=== PATIENT | male | born 1950 | race Caucasian/White ===

== ENCOUNTER → 2022-07-11 | Outpatient (REF) | payer MEDICARE, OTHER | LOC: M LAB REF 16:27 | PROVIDERS: ATTEND Internal Medicine | DX: M10.9 Gout, unspecified (principal) ==

== ENCOUNTER → 2022-09-17 | Outpatient (CLI) | payer MEDICARE, OTHER | LOC: M WUC 15:14 | PROVIDERS: ATTEND Internal Medicine | DX: I51.7 Cardiomegaly (principal); R05.9 Cough, unspecified; R06.00 Dyspnea, unspecified ==

== ENCOUNTER → 2023-04-16 | Outpatient (CLI) | payer MEDICARE, OTHER ==
[~2023-04-16] MED LIST: ALLO100T PO; ALOG25TA PO; ASPI325T48 PO; FLEC25TA PO; GLIM2TAB4 PO; JARD1TAB3 PO; LASI40TA9 PO; LISI40TA4 PO; MAGN400T2 PO; METO75TA PO; NEUR300C PO; OMEG10002 PO; PANT40TA29 PO; THERTAB52 PO; ZOLO100T PO
== END ==
LOC: M PLAIMG 11:07
PROVIDERS: ATTEND Psychiatry & Neurology Neurology
DX: M99.51 Intervertebral disc stenosis of neural canal of cervical region (principal); M43.02 Spondylolysis, cervical region; M50.20 Other cervical disc displacement, unspecified cervical region

== ENCOUNTER → 2023-06-01 | Outpatient (CLI) | payer MEDICARE, OTHER | LOC: M WUC 11:50 | PROVIDERS: ATTEND Internal Medicine | DX: M25.559 Pain in unspecified hip (principal); M19.011 Primary osteoarthritis, right shoulder; M19.012 Primary osteoarthritis, left shoulder ==

== ENCOUNTER → 2023-06-24 | Outpatient (REF) | payer MEDICARE, OTHER | LOC: M LAB REF 11:45 | PROVIDERS: ATTEND Internal Medicine | DX: M79.10 Myalgia, unspecified site (principal); M25.50 Pain in unspecified joint ==

== ENCOUNTER 2023-08-24 07:13 | Day surgery (SDC) | payer MEDICARE, OTHER ==
[~2023-08-24] VITALS: Ht 180.3 cm; Wt 111.0 kg
[~2023-08-24 07:13] MED LIST changes: +NS 1,000 ML IV ONE
[2023-08-24] MEDS ORDERED: propofoL 200 MG/20 ML VIAL As Ordered ONE (07:30)
[2023-08-24] MEDS ORDERED: LIDOCAINE 2% 100MG/5ML SDV (FOR ANES.) As Ordered ONE (07:30)
[2023-08-24 07:37] VITALS: TEMP 97.4
[2023-08-24 09:43] VITALS: BP 126/69; O2SAT 99
== END 2023-08-24 09:49 | disposition home or self-care (01) ==
LOC: M OPP 07:13
PROVIDERS: ATTEND Internal Medicine Gastroenterology
DX: K63.89 Other specified diseases of intestine (principal); K64.0 First degree hemorrhoids; K57.30 Diverticulosis of large intestine without perforation or abscess without bleeding; R19.4 Change in bowel habit; Z87.891 Personal history of nicotine dependence; E11.9 Type 2 diabetes mellitus without complications; G47.30 Sleep apnea, unspecified; Z99.89 Dependence on other enabling machines and devices; Z79.02 Long term (current) use of antithrombotics/antiplatelets; Z79.1 Long term (current) use of non-steroidal anti-inflammatories (NSAID); Z79.82 Long term (current) use of aspirin; Z79.84 Long term (current) use of oral hypoglycemic drugs; Z79.891 Long term (current) use of opiate analgesic; Z79.899 Other long term (current) drug therapy; Z88.8 Allergy status to other drugs, medicaments and biological substances

== ENCOUNTER → 2023-10-20 | Outpatient (CLI) | payer MEDICARE, OTHER ==
[~2023-10-20] MED LIST changes: -NS 1,000 ML IV ONE
== END ==
LOC: M WUC 14:58
PROVIDERS: ATTEND Nurse Practitioner Family
DX: R07.82 Intercostal pain (principal)

== ENCOUNTER → 2023-11-24 | Outpatient (REF) | payer MEDICARE, OTHER ==
[2023-11-24 13:23] LABS: RSV AMPLIFICATION NEGATIVE (NEGATIVE)
== END ==
LOC: M LAB REF 12:16
PROVIDERS: ATTEND Nurse Practitioner Family
DX: R06.02 Shortness of breath (principal); R06.2 Wheezing

== ENCOUNTER → 2023-11-24 | Outpatient (CLI) | payer MEDICARE, OTHER | LOC: M WUC 10:42 | PROVIDERS: ATTEND Nurse Practitioner Family | DX: R06.2 Wheezing (principal); R06.02 Shortness of breath ==

== ENCOUNTER → 2023-11-30 | Outpatient (REF) | payer MEDICARE, OTHER | LOC: M LAB REF 16:18 | PROVIDERS: ATTEND Internal Medicine | DX: M25.50 Pain in unspecified joint (principal) ==

== ENCOUNTER → 2024-07-15 | Outpatient (REF) | payer MEDICARE, OTHER | LOC: M LAB REF 16:36 | PROVIDERS: ATTEND Internal Medicine | DX: M10.9 Gout, unspecified (principal) ==

== ENCOUNTER → 2024-07-26 | Outpatient (CLI) | payer MEDICARE, OTHER | LOC: M PLAIMG 10:38 | PROVIDERS: ATTEND Physician Assistant Medical | DX: R41.3 Other amnesia (principal) ==

== ENCOUNTER 2024-08-28 16:58 | Inpatient (IN) | payer MEDICARE, OTHER ==
[~2024-08-28] VITALS: Ht 182.9 cm; Wt 114.1 kg
[2024-08-28] MEDS: methylPREDNISolone 125MG 2ML VIAL IV ONE (17:30)
[2024-08-28 17:50] LABS: VENOUS BASE EXCESS 1.5 (-2.0-2.0); VENOUS HCO3 25.1 MMOL/L (23.0-27.0); VENOUS O2 SATURATION 92.7 % (60.0-80.0); VENOUS PARTIAL PRESSURE CO2 36.9 mmHg (38.0-50.0); VENOUS PARTIAL PRESSURE O2 63.9 mmHg (30.0-50.0); VENOUS PH 7.451 UNITS (7.330-7.430); VENOUS STANDARD HCO3 25.6 MMOL/L; VENOUS TOTAL CO2 26.3 MMOL/L (24.0-28.0)
[2024-08-28] MEDS ORDERED: ISOVUE-370 76% 100ML VIAL As Ordered ONE (17:52)
[2024-08-28 17:59] LABS: BASO % 0.4 % (0.0-1.0); EOS % 0.4 % (0.0-3.0); HEMATOCRIT 46.4 % (42.0-52.0); HEMOGLOBIN 15.1 g/dl (13.5-17.5); LYMPH # 0.6 10^3/uL (1.5-5.0); LYMPH % 5.7 % (24.0-44.0); MEAN CORPUSCULAR HEMOGLOBIN 26.8 pg (27.0-33.0); MEAN CORPUSCULAR HGB CONC 32.5 g/dl (32.0-36.5); MEAN CORPUSCULAR VOLUME 82.4 fl (80.0-96.0); MONO # 1.1 10^3/uL (0.0-0.8); MONO % 10.9 % (2.0-8.0); NEUTROPHILS # 8.6 10^3/uL (1.5-8.5); NEUTROPHILS % 82.1 % (36.0-66.0); PLATELET COUNT, AUTOMATED 225 10^3/uL (150-450); RED BLOOD COUNT 5.63 10^6/uL (4.30-6.10); WHITE BLOOD COUNT 10.5 10^3/uL (4.0-10.0)
[2024-08-28] MEDS: ALBUTEROL SULFATE 2.5MG/0.5ML INH NEB SOLN INH ONE (18:00)
[2024-08-28] MEDS: IPRATROPIUM 0.5MG/ALBUTEROL 2.5MG INH SOL UD 3ML (DUONEB) NEB ONE ×2 (18:01→20:10)
[2024-08-28 18:11] LABS: INR 1.03; PROTHROMBIN TIME 13.8 SECONDS (12.5-14.5)
[2024-08-28] MEDS: ONDANSETRON 4MG 2ML VIAL IV ONE (18:22)
[2024-08-28 18:29] LABS: ETHYL ALCOHOL (ETHANOL) < 0.003 % (0.000-0.010)
[2024-08-28 18:31] LABS: ALBUMIN 3.6 G/DL (3.2-5.2); ALKALINE PHOSPHATASE 69 U/L (40-129); ALT/SGPT 34 U/L (7.0-40); AST/SGOT 33 U/L (<34); BILIRUBIN,DIRECT 0.1 MG/DL (<0.4); BILIRUBIN,TOTAL 0.6 MG/DL (0.3-1.2); BLOOD UREA NITROGEN 22 MG/DL (9-23); CARBON DIOXIDE LEVEL 25 MMOL/L (20-31); CHLORIDE LEVEL 100 MMOL/L (98-107); CK-MB VALUE MASS < 1.0 NG/ML (<3.6); CREATININE FOR GFR 0.83 MG/DL (0.70-1.30); GLOMERULAR FILTRATION RATE > 60.0 (>42); GLUCOSE, FASTING 204 MG/DL (74-106); MAGNESIUM LEVEL 2.1 MG/DL (1.8-2.4); SALICYLATE LEVEL < 3.0 MG/DL (<30); SODIUM LEVEL 138 MMOL/L (136-145)
[2024-08-28 18:32] LABS: FREE T4 1.01 NG/DL (0.89-1.76)
[2024-08-28 18:33] LABS: THYROID STIMULATING HORMONE 1.011 uIU/ML (0.55-4.78)
[2024-08-28 18:35] LABS: CPK CREATINE PHOSPHOKINASE 115 U/L (46-171); MB/CK RELATIVE INDEX 0.86 (< OR =4)
[2024-08-28 18:45] LABS: OSMOLALITY SERUM 295 MOSM/KG (280-301)
[2024-08-28 19:57] LABS: CK-MB VALUE MASS < 1.0 NG/ML (<3.6)
[2024-08-28 19:58] LABS: CPK CREATINE PHOSPHOKINASE 104 U/L (46-171); MB/CK RELATIVE INDEX 0.96 (< OR =4)
[2024-08-28 21:22] LABS: KETONE, URINE AUTO RFX TRACE mg/dL (NEGATIVE); LEUKOCYTE ESTERASE UR AUTO RFX NEGATIVE (NEGATIVE); MUCUS, URINE RFX SMALL (NEGATIVE); NITRITE, URINE AUTO RFX NEGATIVE (NEGATIVE); RBC, URINE AUTO RFX 0 /HPF (0-3); SQUAM EPITHELIAL CELL UR AURFX 0 /HPF (0-6); WBC, URINE AUTO RFX 0 /HPF (0-3)
[2024-08-28 21:41] LABS: AMPHETAMINES LEVEL URINE NEGATIVE (NEGATIVE); BARBITURATES URINE NEGATIVE (NEGATIVE); BENZODIAZEPINES URINE NEGATIVE (NEGATIVE); COCAINE METABOLITE URINE NEGATIVE (NEGATIVE); METHADONE URINE NEGATIVE (NEGATIVE); OPIATES URINE NEGATIVE (NEGATIVE); PHENCYCLIDINE URINE NEGATIVE (NEGATIVE)
[2024-08-28 21:53] LABS: CANNABINOIDS URINE POSITIVE (NEGATIVE)
[2024-08-28] MEDS ORDERED: METO50TA7 PO (23:27)
[2024-08-28] MEDS ORDERED: JANU100T PO (23:27)
[2024-08-28] MEDS ORDERED: TOLT2CAP4 PO (23:27)
[2024-08-28] MEDS ORDERED: ALLO300T2 PO (23:27)
[2024-08-28] MEDS ORDERED: HOME MED LIST COMPLETE! XX SCH (23:30)
[2024-08-28] MEDS ORDERED: GLUCAGON INJ 1MG VIAL SC PRN (23:35)
[2024-08-28] MEDS ORDERED: GLUCOSE 4 GM CHEW PO PRN (23:35)
[2024-08-28] MEDS ORDERED: DEXTROSE 50% 50ML SYRINGE IV PRN (23:35)
[2024-08-28] MEDS ORDERED: ACETAMINOPHEN 325 MG TAB PO PRN (23:55)
[2024-08-29] VITALS (9 sets, daily range): BP systolic 122–142; BP diastolic 71–90; TEMP 97.7–98.6; O2SAT 87–94
[2024-08-29] MEDS: IPRATROPIUM 0.5MG/ALBUTEROL 2.5MG INH SOL UD 3ML (DUONEB) NEB SCH (00:16)
[2024-08-29] MEDS: methylPREDNISolone 125MG 2ML VIAL IV SCH (02:38)
[2024-08-29] MEDS: OSELTAMIVIR PHOSPHATE 75 MG CAP (TAMIFLU) PO SCH ×2 (05:12→20:53)
[2024-08-29 07:11] LABS: HEMATOCRIT 45.9 % (42.0-52.0); HEMOGLOBIN 14.8 g/dl (13.5-17.5); MEAN CORPUSCULAR HGB CONC 32.2 g/dl (32.0-36.5); MEAN CORPUSCULAR VOLUME 83.6 fl (80.0-96.0); PLATELET COUNT, AUTOMATED 210 10^3/uL (150-450); RED BLOOD COUNT 5.49 10^6/uL (4.30-6.10); WHITE BLOOD COUNT 7.5 10^3/uL (4.0-10.0)
[2024-08-29 07:26] LABS: BASO % 0.1 % (0.0-1.0); LYMPH # 0.4 10^3/uL (1.5-5.0); LYMPH % 5.7 % (24.0-44.0); MONO # 0.3 10^3/uL (0.0-0.8); MONO % 4.5 % (2.0-8.0); NEUTROPHILS # 6.8 10^3/uL (1.5-8.5); NEUTROPHILS % 89.2 % (36.0-66.0)
[2024-08-29 07:32] LABS: ALBUMIN 3.5 G/DL (3.2-5.2); ALKALINE PHOSPHATASE 65 U/L (40-129); ALT/SGPT 33 U/L (7.0-40); AST/SGOT 23 U/L (<34); BILIRUBIN,TOTAL 0.5 MG/DL (0.3-1.2); BLOOD UREA NITROGEN 27 MG/DL (9-23); CALCIUM LEVEL 9.2 MG/DL (8.3-10.6); CARBON DIOXIDE LEVEL 23 MMOL/L (20-31); CHLORIDE LEVEL 104 MMOL/L (98-107); CHOLESTEROL LEVEL 205 MG/DL (<200); CHOLESTEROL RISK RATIO 4.62 (<5); CREATININE FOR GFR 0.94 MG/DL (0.70-1.30); GLOMERULAR FILTRATION RATE > 60.0 (>42); GLUCOSE, FASTING 246 MG/DL (74-106); HDL CHOLESTEROL 44.3 MG/DL (>40); LDL CHOLESTEROL 140.9 MG/DL (<100); NON-HDL-C 160.7 MG/DL; SODIUM LEVEL 140 MMOL/L (136-145); TOTAL PROTEIN 6.7 G/DL (5.7-8.2); TRIGLYCERIDES LEVEL 99 MG/DL (<150)
[2024-08-29] MEDS: HEPARIN SOD (PORCINE) 5000UNITS/ML 1ML VIAL/SYRINGE SC SCH (08:20)
[2024-08-29] MEDS: INSULIN LISPRO (NovoLOG) PER UNIT SC SCH ×2 (08:20→20:54)
[2024-08-29] MEDS: OMEGA-3 1000MG CAPSULE PO SCH (08:20)
[2024-08-29] MEDS: lisinopriL 40MG TAB PO SCH (08:21)
[2024-08-29] MEDS: guaiFENesin ER TABLET 600 MG TAB PO SCH (08:21)
[2024-08-29] MEDS: MAGNESIUM OXIDE 400MG TAB (MAG-OX) PO SCH (08:21)
[2024-08-29] MEDS: FLECAINIDE 50MG TABLET PO SCH (08:21)
[2024-08-29] MEDS: SERTRALINE 100 MG TAB PO SCH (08:22)
[2024-08-29] MEDS: PANTOPRAZOLE 40MG TAB (PROTONIX) PO SCH (08:22)
[2024-08-29] MEDS: allopurinoL 300 MG TAB PO SCH (08:22)
[2024-08-29] MEDS: FUROSEMIDE 40 MG TAB PO SCH (08:22)
[2024-08-29] MEDS: METOPROLOL TART 25 MG TABLET PO SCH (08:22)
[2024-08-29] MEDS ORDERED: BENZONATATE 100MG CAPSULE PO SCH (09:00)
[2024-08-29] MEDS: ASPIRIN 81MG ENTERIC TABLET PO SCH (13:07)
[2024-08-29] MEDS: TOLTERODINE TARTRATE 2 MG LA CAP (DETROL LA) PO SCH (13:07)
[2024-08-29] MEDS: methylPREDNISolone 40MG 1ML VIAL IV SCH (13:08)
[2024-08-29] MEDS: MOM 30ML SUSPENSION UDC PO PRN (16:56)
[2024-08-30 03:50] VITALS: BP 149/88; TEMP 98.1; O2SAT 94
[2024-08-30 06:47] LABS: EOS % 0.2 % (0.0-3.0); HEMATOCRIT 46.5 % (42.0-52.0); HEMOGLOBIN 15.2 g/dl (13.5-17.5); LYMPH # 0.7 10^3/uL (1.5-5.0); LYMPH % 7.4 % (24.0-44.0); MEAN CORPUSCULAR HEMOGLOBIN 27.1 pg (27.0-33.0); MEAN CORPUSCULAR HGB CONC 32.7 g/dl (32.0-36.5); MONO # 0.8 10^3/uL (0.0-0.8); NEUTROPHILS # 7.9 10^3/uL (1.5-8.5); NEUTROPHILS % 83.8 % (36.0-66.0); PLATELET COUNT, AUTOMATED 230 10^3/uL (150-450); WHITE BLOOD COUNT 9.4 10^3/uL (4.0-10.0)
[2024-08-30 07:30] LABS: BLOOD UREA NITROGEN 37 MG/DL (9-23); CALCIUM LEVEL 8.7 MG/DL (8.3-10.6); CARBON DIOXIDE LEVEL 24 MMOL/L (20-31); CHLORIDE LEVEL 103 MMOL/L (98-107); CREATININE FOR GFR 0.84 MG/DL (0.70-1.30); GLOMERULAR FILTRATION RATE > 60.0 (>42); GLUCOSE, FASTING 298 MG/DL (74-106); MAGNESIUM LEVEL 2.4 MG/DL (1.8-2.4); POTASSIUM SERUM 4.6 MMOL/L (3.5-5.1); SODIUM LEVEL 139 MMOL/L (136-145)
[2024-08-30 09:12] VITALS: BP 150/85
[2024-08-30] MEDS ORDERED: OSEL75CA2 PO (11:55)
[2024-08-30] MEDS ORDERED: ASPI81TAEC PO (11:55)
== END 2024-08-30 12:31 | disposition home or self-care (01) | DRG 195 ==
LOC: M ED 16:58 → M ED INP 23:53 → M MSPAV 08-29 01:01
PROVIDERS: ADMIT Student in an Organized Health Care Education/Training Program; ATTEND Internal Medicine
DX: J10.1 Influenza due to other identified influenza virus with other respiratory manifestations (principal); I65.22 Occlusion and stenosis of left carotid artery; I10 Essential (primary) hypertension; E11.9 Type 2 diabetes mellitus without complications; F32.A Depression, unspecified; I48.91 Unspecified atrial fibrillation; G47.00 Insomnia, unspecified; Z79.82 Long term (current) use of aspirin; Z79.899 Other long term (current) drug therapy; Z88.8 Allergy status to other drugs, medicaments and biological substances

== ENCOUNTER → 2024-11-30 | Outpatient (REF) | payer MEDICARE, OTHER ==
[~2024-11-30] MED LIST changes: +ALLO300T2 PO; +ASPI81TAEC PO; +JANU100T PO; +METO50TA7 PO; +OSEL75CA2 PO; +TOLT2CAP4 PO
== END ==
LOC: M LAB REF 16:55
PROVIDERS: ATTEND Internal Medicine
DX: M10.9 Gout, unspecified (principal)

== ENCOUNTER → 2025-02-28 | Outpatient (CLI) | payer MEDICARE, OTHER ==
[~2025-02-28] MED LIST changes: +GABA-1172 PO; +LEVO1TAB40 PO; +LISI40TA10 PO; -LISI40TA4 PO; +MIRT1TAB PO; +VENTAER INH
== END ==
LOC: M PLAIMG 13:10
PROVIDERS: ATTEND Internal Medicine Pulmonary Disease
DX: J90 Pleural effusion, not elsewhere classified (principal); R91.8 Other nonspecific abnormal finding of lung field